=== PATIENT | male | born 1940 | race Caucasian/White ===

== ENCOUNTER 2024-11-19 05:59 | Day surgery (SDC) | payer MEDICARE, OTHER, SELFPAY ==
[2024-11-12 13:57] VITALS: BMI 20.2
--- NOTE | 2024-11-19 | DI.RAD.S_ITS ---
PROCEDURE: XR ANKLE LT MIN 3V INDICATIONS: post-op TECHNIQUE: 3 views of the ankle were acquired. COMPARISON: Outside Facility, RG, XR ANKLE 3V LEFT, 09/13/2024, 13:04. [facility], CR, ORTHO-XR ANKLE 3V WB LEFT, 11/11/2024, 11:41. FINDINGS: Bones: Postsurgical changes again seen from tibiotalar and subtalar arthrodesis with multiple metal screws. A transverse screw at the posterior talus and fibula has been removed. The remaining metal screws appear intact. There is mild lucency at the anterior calcaneus and anterior talar screws that may indicate loosening. Solid osseous bridging across the mortise joint. Subtalar joint line is visualized. Chronic irregularity of the distal fibula likely postsurgical. Soft tissues: No suspicious soft tissue calcifications. IMPRESSION: Postsurgical changes again seen in the hindfoot with interval removal of a transverse talofibular screw. Approved by: Rich Ledbetter M.D. on 11/19/2024 at 10:00
--- NOTE | 2024-11-19 06:00 | EKG_ITS ---
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
--- NOTE | 2024-11-19 07:09 | PM.PREOP ---
Pre-operative Note Interval Note History & Physical reviewed/Exam performed by Physician: Yes Changes to H&P: No
[2024-11-19] MEDS: ACETAMINOPHEN 325 MG TABLET 975 MG PO (07:13)
[2024-11-19] MEDS: ALBUTEROL/IPRATROPIUM 3 ML AMPUL INH (07:14)
[2024-11-19 07:21] VITALS: BP 174/81; PULSE 57; RESP 16; TEMP 36.4; O2SAT 97; BMI 19.3
[2024-11-19] MEDS: LACTATED RINGERS 1,000 ML 42 ML IV (07:29)
--- NOTE | 2024-11-19 08:10 | SUR.OPER ---
Decubital ulcer covered with pressure bandage. Left lateral ankle pressure wound. Pressure wound between left 2nd and 3rd toes. Scattered, generalized bruising over body d/t blood thinners and antiplatelet medications. Small cut to right hand middle finger.
--- NOTE | 2024-11-19 08:27 | SUR.OPER ---
Lateral right, head on pillow, bottom leg bent with pillow under knee to foot, upper leg straight and supported with pillows. Upper arm supported by pillows and secured over bottom arm to padded arm board. Lower arm supported by pillow. Safety belt at hip, tape over blanket lower legs. Surgeon approved of final position prior to start of procedure.
[2024-11-19 08:30] VITALS: BP 98/57; PULSE 73; RESP 19; TEMP 36.1; O2SAT 98
[2024-11-19 08:35] VITALS: BP 111/56; PULSE 68; RESP 18; O2SAT 97
--- NOTE | 2024-11-19 08:38 | PM.OP.1 ---
Operative Date/Time/Diagnoses Date of procedure: 11/19/24 Time of procedure: 08:40 Pre-op diagnosis: Left Ankle Symptomatic hardware Post-op diagnosis: same Procedure & Clinicians Procedure: Left ankle hardware removal, cultures and irrigation. Same procedure(s) as scheduled: Yes Surgeon: Alejo Alvarado Assisted?: Yes Can Operator: Bonnie Alejandro Anesthesia Type: Sedation and Local Operative Notes Findings: Visible screw in the lateral malleolus Closure Type: primary Specimen(s): other Applied: none Estimated Blood Loss (mL): 5 Blood products transfused: none Tourniquet time (min): 0 Procedure in detail: Laterality: Left Preoperative diagnosis: Left ankle symptomatic hardware and possible infection Procedure performed: Left ankle hardware removal, culture obtain and irrigation Postoperative diagnosis: Same Primary Surgeon: Alejo Alvarado MD Secondary Surgeon: MICHELL Krause Anesthesia: Sedation and local EBL: 3 ml Tourniquet: 0 minutes @ 250 mmHg Implants: None Indication For Surgery: The patient has symptomatic hardware and there was concern for ongoing infection The risks, benefits, and alternatives were discussed. Risks include pain, bleeding, infection, damage to nearby structures and cartilage, lack of symptom relief, malunion, nonunion, implant complications with need for removal, need for further surgery, DVT, PE, stroke, and . Written consent was obtained. Procedure in Detail: The patient was met in the pre-operative hold area. Consent was verified and operative extremity was signed. The patient then met with anesthesia and was brought back to the operating room. The patient was placed supine on the operating table. A general anesthetic was administered. The extremity was then prepped and draped in the usual sterile fashion. A timeout was performed per protocol. All were in agreement and we proceeded. There was a skin ulcer on the lateral aspect of the ankle. Deep within the hole you could see small piece of metal which correlated to the screw. We confirmed that this was the screw on fluoroscopy. The ulcer was extended approximately 3 mm both proximally and distally in order to get the screw out. We were able to remove the screw without any complications. At that time we obtained cultures, screw was sent to pathology and bone samples were removed from the location that the screw was taken from. The wound was then irrigated with 2 L of sterile normal saline. A small ellipse of nonviable tissue was taken from the ulcer site. The wound was then closed with 3-0 nylon. A small area remained gapped. Local anesthetic was placed. A sterile dressing and splint were applied. The patient was awakened and transferred to the recovery room. Postoperative Plan: Same day surgery discharge WBAT LLE Keep the wound clean Follow up with wound care on Friday Follow up with ortho in 2 weeks Alejo Alvarado MD Complications: none Post-operative Condition: stable Disposition: PACU
[2024-11-19 08:40] VITALS: BP 123/62; PULSE 68; RESP 17; O2SAT 97
[2024-11-19 08:45] VITALS: BP 139/67; PULSE 67; RESP 18; TEMP 36.6; O2SAT 99
[2024-11-19] MEDS: ONDANSETRON 4 MG/2 ML INJ IV (09:23)
== END 2024-11-19 09:22 | disposition home or self-care (01) ==
PROVIDERS: PCP Physician Assistant Medical; Referring Provider Orthopaedic Surgery; Visit Provider Orthopaedic Surgery
PROC: (CPT 27704; principal; 2024-11-19 07:45)
DX: T84.84XA Pain due to internal orthopedic prosthetic devices, implants and grafts, initial encounter (principal); L97.321 Non-pressure chronic ulcer of left ankle limited to breakdown of skin; I25.2 Old myocardial infarction; I69.398 Other sequelae of cerebral infarction
CPT/HCPCS: 27704; 73610; 87070; 87075; 87077; 87102; 87186; 87205; 93005; J0689; J2405; J2704; J3010; J7120